=== PATIENT | male | born 1970 | race Caucasian/White ===

== ENCOUNTER 2020-01-30 12:05 | Day surgery (SDC) | payer BC ==
[2020-01-28 15:15] VITALS: BMI 29.0
[~2020-01-30 12:05] MED LIST: Dexamethasone 20 MG/5 ML VIAL ONE; Ketorolac Tromethamine 30 MG/ML VIAL ONE; Lidocaine 1% PF 5 ML VIAL ONE; PROPOFOL 200 MG/20 ML VIAL ONE
[2020-01-30] MEDS ORDERED: Fentanyl 100 MCG/2 ML VIAL ONE ×2 (12:58→13:03)
[2020-01-30] MEDS ORDERED: HYDROmorphone 0.5 MG/0.5 ML SYRINGE ONE (13:03)
[2020-01-30] MEDS ORDERED: Bupivacaine PF 0.5% 30 ML VIAL ONE (13:56)
--- NOTE | 2020-01-30 18:39 | OP ---
DATE OF PROCEDURE: 01/30/2020 OPERATION PERFORMED: Left foot irrigation and debridement with foreign body removal. PREOPERATIVE DIAGNOSIS: Left foot wound with foreign body. POSTOPERATIVE DIAGNOSIS: Left foot wound with foreign body. COMPLICATIONS: None. ESTIMATED BLOOD LOSS: Minimal. PACKING MACHINE OPERATOR: None. IMPLANTS: None. INDICATIONS: Mr. Charles is a 49-year-old male who had injured his foot. He has a laceration and a foreign body. He has been indicated for irrigation and debridement of the foot. He has wanted to proceed with this for foreign body removal. DESCRIPTION OF PROCEDURE: The patient was brought to the operating room. He was positioned supine. General anesthesia was induced. A multidisciplinary time-out was performed. He was given intravenous antibiotics. The left foot was prepped and draped in sterile fashion. We inflated the tourniquet. We then made a small incision over the dorsal foot wound. We dissected down through the subcutaneous tissues following the tract of his wound. There were several small bony fragments, which were removed. There was also several small dark foreign bodies, which were thought to be plastic in material. These were removed. We thoroughly irrigated with copious lavage. We trimmed the skin edges and used a curette as well as a rongeur. We then again irrigated and loosely closed the skin. A sterile dressing was applied. The patient was taken to the recovery room in good condition. Job ID: [id number]
--- NOTE | 2020-01-30 20:09 | RAD ---
3 VIEWS LEFT FOOT: Date: 01/30/2020 COMPARISON: 01/27/2020. HISTORY: Foreign body in foot. FINDINGS/IMPRESSION: Multiple limited intraoperative fluoroscopic views of the left foot submitted for interpretation. The previously seen radiopaque foreign bodies between the fourth and fifth metatarsal heads are no longe r visualized. POS: [facility]
== END 2020-01-30 16:53 | disposition home or self-care (01) ==
LOC: SDC 12:05
PROVIDERS: ATTEND Orthopaedic Surgery
PROC: 0J9R0ZZ Drainage of Left Foot Subcutaneous Tissue and Fascia, Open Approach (ICD-10-PCS; principal; 2020-01-30)
DX: S91.322A Laceration with foreign body, left foot, initial encounter (principal); E78.5 Hyperlipidemia, unspecified; F32.9 Major depressive disorder, single episode, unspecified; Z79.899 Other long term (current) drug therapy
CPT/HCPCS: 76000; J0690; J1100; J1170; J1885; J2704; J3010; S0020

== ENCOUNTER 2022-08-16 17:30 | Outpatient (CLI) | payer BC | END 2022-08-16 17:31 | disposition home or self-care (01) | LOC: SLEEPLAB 17:30 | PROVIDERS: ATTEND Family Medicine | DX: G47.33 Obstructive sleep apnea (adult) (pediatric) (principal); R53.83 Other fatigue; E66.9 Obesity, unspecified; R06.83 Snoring | CPT/HCPCS: 95800 ==